=== PATIENT | male | born 1965 | race Caucasian/White ===

== ENCOUNTER 2024-04-30 11:36 | Emergency (ER) | payer OTHER, SELFPAY ==
[2024-04-30] VITALS (7 sets, daily range): BP systolic 111–143; BP diastolic 82–91; PULSE 85–97; RESP 15–22; TEMP 36.2–37.1; O2SAT 91–97
[2024-04-30 13:42] LABS: Basophils Absolute Auto 0.1 K/mm3 (0.0-0.1); Basophils Percent Auto 0.8 % (0.2-1.2); Eosinophils Absolute Auto 0.5 K/mm3 (0-0.3); Eosinophils Percent Auto 5.7 % (0-4.4); Hematocrit 48.9 % (42.0-52.0); Hemoglobin 16.9 g/dL (14.0-18.0); Immature Granulocyte Absolute 0.09 K/mm3 (0.00-0.031); Lymphocytes Absolute Auto 2.42 K/mm3 (0.9-3.2); Mean Corpuscular HGB Conc 34.6 g/dl (32-36); Mean Corpuscular Hemoglobin 33.7 pg (26-34); Mean Corpuscular Volume 97.6 fl (80-100); Mean Platelet Volume 9.7 fl (7.4-10.4); Monocytes Absolute Auto 0.8 K/mm3 (0.1-0.6); Monocytes Percent Auto 8.5 % (2.6-8.5); Neutrophils Absolute Auto 5.4 K/mm3 (1.3-6.7); Platelet Count Result 197 k/mm3 (150-375); Red Blood Count 5.01 M/mm3 (4.6-6.20); White Blood Count 9.3 K/mm3 (4.5-10.0)
[2024-04-30 13:54] LABS: Alanine Aminotransferase 105 U/L (6-50); Albumin Level 4.5 g/dL (3.5-5.1); Alkaline Phosphatase 88 U/L (38-126); Anion Gap 6 mmol/L (4-12); Aspartate Amino Transferase 99 U/L (17-59); Bilirubin,Total 0.7 mg/dL (0.2-1.3); Blood Urea Nitrogen 10 mg/dL (9-20); Carbon Dioxide 33 mmol/L (22-30); Chloride 99 mmol/L (98-107); Estimated CRCL calculation 156 ml/min; Estimated Glomerular Filt Rate > 60; Glucose 96 mg/dL (65-110); Potassium 3.8 mmol/L (3.4-5.0); Sodium 138 mmol/L (137-145)
[2024-04-30 13:55] LABS: Prothrombin Time 13.7 Seconds (11.1-14.7)
[2024-04-30 13:56] LABS: Partial Thromboplastin Time 26.3 Seconds (22.3-36.8)
--- NOTE | 2024-04-30 14:45 | ED.GIBLEED ---
HPI - GI Bleed General Chief complaint: GI Bleed Stated complaint: I'm passing blood Time Seen by Provider: 04/30/24 13:37 History of Present Illness HPI Narrative: Patient is a 58-year-old male who presents ER with bright red blood per rectum. Had 4 episodes of watery stools yesterday. Today he had a formed stool that had a small amount of blood mixed in with that and it was on the toilet paper. He is on no blood thinners. He has history of diverticulitis. No syncope or dizziness. No shortness of breath. Patient reports he returned from the [place] little over week ago but symptoms did not start until yesterday. Related Data Allergies Allergy/AdvReac Type Severity Reaction Status Date / Time Penicillins Allergy Mild Verified 10/13/10 19:38 amoxicillin Allergy Unknown Verified 07/01/10 13:20 TAPE PLASTIC Allergy Unknown Rash Uncoded 06/21/10 13:36 Review of Systems Review of Systems: All systems reviewed & are unremarkable except as noted in HPI and below Constitutional: Constitutional: Reports no additional constitutional complaints ENT: Reports system reviewed and no additional complaints, except as documented Cardiovascular: Cardiovascular: Reports no additional cardiovascular complaints Respiratory: Respiratory: Reports no additional respiratory complaints Gastrointestinal: Gastrointestinal: Denies abdominal pain, Reports diarrhea, Denies nausea and Denies vomiting Genitourinary: Genitourinary: Reports no additional male genitourinary complaints [facility] Past Medical History Medical History (Updated 04/30/24 @ 15:01 by Lavon Morales MD) Chronic lung disease Diverticulitis Surgical History Surgical History (Updated 04/30/24 @ 14:59 by Lavon Morales MD) History of colonoscopy Family History Family History (Updated 06/06/14 @ 07:13 by DOCTOR UNKNOWN) Mother Family history of gastrointestinal disorder Social History Social History Alcohol intake: current Exam Narrative: GENERAL: Well-appearing, well-nourished, and in no acute distress. HEAD: Normocephalic, atraumatic. ENT: Mucous membranes moist. NECK: Supple. CHEST: Faint expiratory wheezes at the lung bases. No respiratory distress. HEART: Regular rate and rhythm. Normal peripheral pulses. ABDOMEN: Soft, nontender, nondistended. Rectal deferred as patient was able to produce photos of his bloody stools. EXTREMITIES: Normal range of motion. No edema. SKIN: Warm, dry, no rash. NEURO: Alert and oriented x3. PSYCH: Normal mood and affect. Course Course Emergency Course: Discussed with GI. Patient without hypertension or anemia and his symptoms have improved. Appropriate for outpatient workup. Vital Signs Vital signs: Vital Signs Temperature 97.2 F L 04/30/24 11:47 Pulse Rate 97 04/30/24 11:47 Respiratory Rate 22 H 04/30/24 11:47 Blood Pressure 143/85 H 04/30/24 11:47 Pulse Oximetry 91 04/30/24 11:47 Temperature 97.2 F L 04/30/24 11:47 Pulse Rate 90 04/30/24 14:55 Respiratory Rate 15 04/30/24 13:34 Blood Pressure 132/86 04/30/24 14:55 Pulse Oximetry 97 04/30/24 13:36 Oxygen Delivery Nasal Cannula 04/30/24 13:36 Oxygen Flow Rate 3 04/30/24 13:36 MDM - GI Bleed Lab Data 04/30/24 13:35 04/30/24 13:36 Labs: Lab Results 04/30/24 04/30/24 Range/Units 13:35 13:36 WBC 9.3 (4.5-10.0) K/mm3 RBC 5.01 (4.6-6.20) M/mm3 Hgb 16.9 (14.0-18.0) g/dL Hct 48.9 (42.0-52.0) % MCV 97.6 (80-100) fl MCH 33.7 (26-34) pg MCHC 34.6 (32-36) g/dl RDW 13.0 (11.5-14.5) % Plt Count 197 (150-375) k/mm3 MPV 9.7 (7.4-10.4) fl Immature Gran % (Auto) 1.0 H (0-0.5) % Neut % (Auto) 58.0 (45.5-73.1) % Lymph % (Auto) 26.0 (18.3-44.2) % [place] % (Auto) 8.5 (2.6-8.5) % Eos % (Auto) 5.7 H (0-4.4) % Baso % (Auto) 0.8 (0.2-1.2) % Lymph # (Auto) 2.42 (0.9-3.2) K/mm3 [place] # (Auto) 0
== END 2024-04-30 15:14 | disposition home or self-care (01) ==
PROVIDERS: Emergency Provider Emergency Medicine; PCP Nurse Practitioner Family
DX: K62.5 Hemorrhage of anus and rectum (principal); J98.4 Other disorders of lung
CPT/HCPCS: 36415; 80053; 85025; 85610; 85730; 86850; 86900; 86901; 99283

== ENCOUNTER 2024-06-07 13:21 | Outpatient (CLI) | payer OTHER, SELFPAY ==
--- NOTE | ~2024-06-07 | CT_ITS ---
EXAMINATION: CT abdomen pelvis w con DATE: 06/07/2024 15:19 INDICATION: Lower abdominal pain, unspecified. TECHNIQUE: Computed tomography (CT) of the abdomen and pelvis was performed with 100 mL Omnipaque 350 intravenous contrast. Automated exposure control and iterative reconstruction technique were employe d. The dose-length product was 1605.94 mGy-cm. COMPARISON: CT abdomen and pelvis 10/13/2010 FINDINGS: The visualized portions of the lung bases demonstrate mild atelectasis. No pleural effusion . The heart size is normal. No pericardial effusion. The liver, gallbladder, spleen, pancreas, and ad renal glands are normal. There is an 18 mm cyst in right kidney. There is a 2 mm stone in left kidney . The prostate is moderately enlarged. There are changes of right inguinal hernia repair. There is di verticulosis of the colon without evidence of diverticulitis. The appendix is normal. There are ramos es of umbilical hernia repair. There are no pathologically enlarged lymph nodes. There is no free int raperitoneal fluid. There is mild thoracic and lumbar spondylosis. There is mild chronic anterior wed ging of T12 and L1 vertebral bodies. IMPRESSION: 1. No etiology for the patient's symptoms. Reviewed, dictated and finalized at location A.
[2024-06-07 15:12] LABS: Estimated Glomerular Filt Rate 57
== END 2024-06-07 13:22 | disposition home or self-care (01) ==
LOC: ANHIMG 13:26
PROVIDERS: PCP Nurse Practitioner Family; Visit Provider Nurse Practitioner Family
DX: R10.30 Lower abdominal pain, unspecified (principal)
CPT/HCPCS: 74177; Q9967

== ENCOUNTER 2024-07-16 00:39 | Day surgery (SDC) | payer OTHER, SELFPAY ==
[2024-06-26 13:13] VITALS: BMI 36.1
--- NOTE | 2024-06-27 10:18 | PC.NURSE ---
Pt questioned if he still needed to have procedure done as he was told by office that his scans were normal. Message sent to office and Deana WEBER called today and states yes, Lori wants him to still have Flex. Sig. due to rectal bleeding . I passed this on to the patient today and he is on board with doing procedure. Meggan in office recent his paperwork/instructions 06/26/2024.
[2024-07-16 11:39] VITALS: BP 155/95; PULSE 83; RESP 20; TEMP 36.1; O2SAT 97; BMI 35.9
--- NOTE | 2024-07-16 11:49 | WPDANESEPPF ---
Anes - Initial Pre Proc Eval Procedure: Operation Date: 07/16/24 12:30 Proposed Procedures p Flexible Sigmoidoscopy - Derek Tuttle MD Date/Time: 07/16/24 11:49 Surgeon: Derek Tuttle MD Pre Op Diagnosis: Hemorrhage of anus and rectum Patient Data Age: 58 Gender: M Height: 1.83 m Weight: 120.3 kg Last Vital Signs Temp 36.1 C L 07/16/24 11:39 Pulse 83 07/16/24 11:39 Resp 20 07/16/24 11:39 BP 155/95 H 07/16/24 11:39 Pulse Ox 97 07/16/24 11:39 O2 Del Method Room Air 07/16/24 11:39 Allergies Allergy/AdvReac Type Severity Reaction Status Date / Time TAPE PLASTIC Allergy Unknown Rash Uncoded 07/16/24 11:36 Home Medications Medication Instructions Recorded Confirmed Type albuterol sulfate 2.5 mg/3 mL 2.5 mg inhalation Q4-6H PRN 05/07/24 07/16/24 History (0.083 %) solution for nebulization Shortness Of Breath amlodipine 10 mg tablet 10 mg PO DAILY 05/07/24 07/16/24 History atorvastatin 20 mg tablet 20 mg PO DAILY 05/07/24 07/16/24 History budesonide-formoterol HFA 160 1 inh inhalation ONCE 05/07/24 07/16/24 History mcg-4.5 mcg/actuation aerosol inhaler (Symbicort) celecoxib 200 mg capsule (Celebrex) 200 mg PO DAILY 05/07/24 07/16/24 History cetirizine 10 mg tablet (All Day 10 mg PO DAILY PRN ALLERGIES 05/07/24 07/16/24 History Allergy (cetirizine)) diclofenac sodium 1 % topical gel 2 g topical QID 05/07/24 07/16/24 History (Arthritis Pain (diclofenac)) fluticasone propionate 93 1 spray intranasal Q12H 05/07/24 07/16/24 History mcg/actuation breath activated aerosol (Xhance) hydrochlorothiazide 12.5 mg capsule 12.5 mg PO DAILY 05/07/24 07/16/24 History omeprazole 40 mg capsule,delayed 40 mg PO DAILY 05/07/24 07/16/24 History release sertraline 100 mg tablet 100 mg PO DAILY 05/07/24 07/16/24 History tiotropium bromide 18 mcg capsule 1 cap inhalation DAILY 05/07/24 07/16/24 History with inhalation device (Spiriva with HandiHaler) losartan 100 1 tablet PO DAILY 06/26/24 07/16/24 History mg-hydrochlorothiazide 25 mg tablet Patient hx anesthesia problems: none Family hx anesthesia problems: none Results Review: All pre-operative results and documents have been reviewed as part of the pre-operative evaluation. [facility] Past Medical History Medical History (Updated 07/16/24 @ 11:49 by Leonel Bradley MD) Chronic lung disease Diverticulitis HTN (hypertension) Obesity On home O2 Surgical History Surgical History History of colonoscopy Family History Family History Mother Family history of gastrointestinal disorder Diabetes mellitus Hypertension Sibling Crohn's disease Heart disease Social History Social History Smoking status: Never smoker Alcohol intake: current Alcohol use details: ONE BOTTLE WINE DAILY Substance use: never Substance use type: does not use Do You Feel Safe in your Home?: Yes Lack of Transportation: No Lack of Food: Never True Current Housing: I Have Housing Concerned About Future Housing: No Difficulty Paying Gas/Electric Bills: No Difficulty Paying for Meds: No Currently Unemployed: YES Education: Master's Degree or Higher Difficulty w/ Childcare or Family Care: No Living arrangements: with friend(s) Occupation/Education: retired Gender identity (if verbalized by the patient): Male Spiritual care concerns: No Anes - Eval Final PreProcedure Day of Procedure 07/16/24 11:49 Patient weight: obese Heart: regular rate and rhythm Lungs: clear to auscultation Airway: Mallampati scale class II Neurological: alert and oriented Last oral intake: >/= 8 hours ASA classification: III Emergent: no Anesthetic plan: proceed Anesthesia type and monitoring: general GIVS and standard monitori
[2024-07-16] MEDS: LACTATED RINGERS 1,000 ML 150 ML IV CONT (12:00)
--- NOTE | 2024-07-16 12:41 | PM.HPGS ---
History of Present Illness History of Present Illness Consent: Risks, benefits, and alternatives have been discussed and questions answered. Patient agrees to proceed with procedure. Chief complaint: Hemorrhage of anus and rectum Narrative: Cristi Marshall is a 58 year old male with episode of rectal bleeding, CT scan no major findings, last colonoscopy with 12 polyps removed in 2021 at another institution. Review of Systems Review of Systems: All systems reviewed & are unremarkable except as noted in HPI and below PMFSH Past Medical History Medical History (Updated 07/16/24 @ 12:44 by Derek Tuttle MD) Chronic lung disease Colon polyp Diverticulitis History of diverticulitis HTN (hypertension) Obesity On home O2 Surgical History Surgical History History of colonoscopy Family History Family History Mother Family history of gastrointestinal disorder Diabetes mellitus Hypertension Sibling Crohn's disease Heart disease Social History Social History Smoking status: Never smoker Alcohol intake: current Alcohol use details: ONE BOTTLE WINE DAILY Substance use: never Substance use type: does not use Do You Feel Safe in your Home?: Yes Lack of Transportation: No Lack of Food: Never True Current Housing: I Have Housing Concerned About Future Housing: No Difficulty Paying Gas/Electric Bills: No Difficulty Paying for Meds: No Currently Unemployed: YES Education: Master's Degree or Higher Difficulty w/ Childcare or Family Care: No Living arrangements: with friend(s) Occupation/Education: retired Gender identity (if verbalized by the patient): Male Spiritual care concerns: No Meds Home Medications and Allergies Home Medications Medication Instructions Recorded Confirmed Type albuterol sulfate 2.5 mg/3 mL 2.5 mg inhalation Q4-6H PRN 05/07/24 07/16/24 History (0.083 %) solution for nebulization Shortness Of Breath amlodipine 10 mg tablet 10 mg PO DAILY 05/07/24 07/16/24 History atorvastatin 20 mg tablet 20 mg PO DAILY 05/07/24 07/16/24 History budesonide-formoterol HFA 160 1 inh inhalation ONCE 05/07/24 07/16/24 History mcg-4.5 mcg/actuation aerosol inhaler (Symbicort) celecoxib 200 mg capsule (Celebrex) 200 mg PO DAILY 05/07/24 07/16/24 History cetirizine 10 mg tablet (All Day 10 mg PO DAILY PRN ALLERGIES 05/07/24 07/16/24 History Allergy (cetirizine)) diclofenac sodium 1 % topical gel 2 g topical QID 05/07/24 07/16/24 History (Arthritis Pain (diclofenac)) fluticasone propionate 93 1 spray intranasal Q12H 05/07/24 07/16/24 History mcg/actuation breath activated aerosol (Xhance) hydrochlorothiazide 12.5 mg capsule 12.5 mg PO DAILY 05/07/24 07/16/24 History omeprazole 40 mg capsule,delayed 40 mg PO DAILY 05/07/24 07/16/24 History release sertraline 100 mg tablet 100 mg PO DAILY 05/07/24 07/16/24 History tiotropium bromide 18 mcg capsule 1 cap inhalation DAILY 05/07/24 07/16/24 History with inhalation device (Spiriva with HandiHaler) losartan 100 1 tablet PO DAILY 06/26/24 07/16/24 History mg-hydrochlorothiazide 25 mg tablet Allergies Allergy/AdvReac Type Severity Reaction Status Date / Time TAPE PLASTIC Allergy Unknown Rash Uncoded 07/16/24 11:36 Vital Signs Vital Signs - 24 hr 07/16/24 11:39 Temperature 97 F L Pulse Rate 83 Respiratory Rate 20 Blood Pressure 155/95 H Pulse Oximetry 97 Oxygen Delivery Room Air Exam Const: General: comfortable and no acute distress HENMT: Face/Nose/Sinus: Normal nares present Eyes: General: appearance normal, both eyes and all related structures Neck: Neck: no JVD Resp: Auscultation: clear to auscultation bilaterally Cardio: Rate: regular rate Rhythm: regular rhythm GI: Inspection: non-d
[2024-07-16 13:03] VITALS: BP 149/101; PULSE 75; RESP 21; O2SAT 97
[2024-07-16 13:13] VITALS: BP 129/77; PULSE 80; RESP 21; O2SAT 95
[2024-07-16 13:23] VITALS: BP 135/84; PULSE 71; O2SAT 95
== END 2024-07-16 13:28 | disposition home or self-care (01) ==
PROVIDERS: Visit Provider Internal Medicine Gastroenterology
PROC: 0DJD8ZZ Inspection of Lower Intestinal Tract, Via Natural or Artificial Opening Endoscopic (ICD-10-PCS; CPT 45330; principal; 2024-07-16 12:30)
DX: D12.3 Benign neoplasm of transverse colon (principal); K57.30 Diverticulosis of large intestine without perforation or abscess without bleeding; J98.4 Other disorders of lung; I10 Essential (primary) hypertension; E66.9 Obesity, unspecified; Z68.36 Body mass index [BMI] 36.0-36.9, adult; Z79.51 Long term (current) use of inhaled steroids; Z79.1 Long term (current) use of non-steroidal anti-inflammatories (NSAID); Z99.81 Dependence on supplemental oxygen; Z87.19 Personal history of other diseases of the digestive system; Z82.49 Family history of ischemic heart disease and other diseases of the circulatory system
CPT/HCPCS: 45385; 88305; J2003; J2704; J7120